=== PATIENT | female | born 1975 | race American Indian/Alaskan Native ===

== ENCOUNTER 2018-08-15 15:43 | Outpatient (CLI) | payer OTHER | END 2018-08-15 15:44 | disposition home or self-care (01) | LOC: LABHHL 15:43 | PROVIDERS: ATTEND Surgery | DX: N60.02 Solitary cyst of left breast (principal) | CPT/HCPCS: 88112 ==

== ENCOUNTER 2019-12-27 09:46 | Outpatient (CLI) | payer OTHER | END 2019-12-27 09:47 | disposition home or self-care (01) | LOC: LABHHL 09:46 | PROVIDERS: ATTEND Surgery | DX: N60.01 Solitary cyst of right breast (principal) | CPT/HCPCS: 88112 ==

== ENCOUNTER 2020-01-16 08:29 | Outpatient (CLI) | payer OTHER ==
--- NOTE | 2020-01-16 09:17 | Ultrasound Report ---
LIMITED LEFT BREAST ULTRASOUND HISTORY: Mammographic asymmetries. COMPARISON: 08/11/2019 and 08/24/2019 mammograms. FINDINGS: Sonographic evaluation focused upon the outer location of the left breast demonstrates young ral benign cysts. The largest is at 3:30 o'clock 5 cm from the nipple and measures 11 mm. No solid ma ss or suspicious shadowing. IMPRESSION: Benign left breast cysts and no suspicious finding. If the clinical examination remains stable, recommend bilateral annual screening mammographic evaluat ion. BIRADS 2: Benign Signer Name: Gage Marin MD Signed: 01/16/2020 9:12 AM Workstation Name: [id number]
== END 2020-01-16 08:30 | disposition home or self-care (01) ==
LOC: SPVWC 08:29
PROVIDERS: ATTEND Surgery
DX: N60.02 Solitary cyst of left breast (principal); R92.8 Other abnormal and inconclusive findings on diagnostic imaging of breast

== ENCOUNTER 2021-03-11 13:02 | Outpatient (CLI) | payer OTHER ==
--- NOTE | 2021-03-11 14:21 | Ultrasound Report ---
ULTRASOUND-GUIDED RIGHT BREAST ASPIRATION WITH CLIP PLACEMENT INDICATION: Outside imaging reports. We do not have the outside imaging. However, the reports describ e a cyst in the right breast at the 11:00 position, 1 cm from the nipple. FINDINGS: Informed consent was obtained. The cyst within the right breast at the 11:00 position, 1 cm from the nipple, measured 2.9 x 1.5 x 2.2 cm. This would correspond with the outside report. Floating debris w ere noted within this mildly complicated cyst. The overlying skin was cleansed with chloro prep and l ocal anesthesia was obtained with a 1% lidocaine solution. Under ultrasound guidance an 18-gauge need le was advanced inside the cyst. A total of 8 mL of dark greenish clear fluid was aspirated and the c yst collapsed completely. A U-shaped biopsy marker was placed to eleonora the site of the biopsy. The asp irate was placed in cytology solution and sent to pathology for assessment. Patient tolerated the procedure well and no immediate complications were identified. A post procedure mammogram was not obtained, however the biopsy marker appears appropriately sonographically. IMPRESSION: Technically successful ultrasound-guided fine-needle aspiration of right breast 11:00 cyst with aspir ate sent for cytological analysis. An addendum will be added to this report once pathology results are available. Signer Name: Brown Patel MD Signed: 03/11/2021 2:16 PM Workstation Name: [id number]
== END 2021-03-11 13:03 | disposition home or self-care (01) ==
LOC: SPVWC 13:02
PROVIDERS: ATTEND Surgery
DX: N60.01 Solitary cyst of right breast (principal); N63.11 Unspecified lump in the right breast, upper outer quadrant; N64.4 Mastodynia; N64.89 Other specified disorders of breast
CPT/HCPCS: 10005; 88112

== ENCOUNTER 2021-05-27 10:07 | Outpatient (CLI) | payer OTHER ==
--- NOTE | 2021-05-27 12:44 | Ultrasound Report ---
Procedure: Ultrasound-guided left breast cyst aspiration, 05/27/2021 Clinical information/indication: The patient has a history of a palpable left breast lump. She presen ts today for ultrasound-guided cyst aspiration. Comparison: Left breast ultrasound, 05/19/2021. Procedure: The benefits, indications and risks were discussed with the patient including but not limi filiberto to bleeding and infection. The agreed to proceed with both verbal and written consent. A timeout procedure was performed using 2 patient identifiers. Sonographic evaluation prior to cyst aspiration demonstrates several scattered cysts in the lateral l eft breast. One cyst at the 3:00 position 6 cm from the nipple appears to correspond to the patient's area of palpable concern. Therefore, this cyst was targeted for aspiration. The breast was prepped and draped in the usual sterile fashion. Lidocaine 1% was used for local anest hesia. Under direct ultrasound guidance, a 25-gauge needle was advanced into the oval cyst at the 3:0 0 position 6 cm from the nipple and was completely aspirated. The cyst completely collapsed. The need le was removed and puncture site covered with a sterile dressing. The cyst yielded 1-2 cc of light ye llow fluid and was discarded. The patient tolerated the procedure without difficulty. No complications were encountered. IMPRESSION: 1. Technically successful ultrasound-guided left breast cyst aspiration. No additional follow-up is n eeded unless otherwise clinically indicated. Findings and recommendations were discussed with the conor seo at the time of her visit. Signer Name: Luciana Yanez MD Signed: 05/27/2021 12:40 PM Workstation Name: [id number]
== END 2021-05-27 10:08 | disposition home or self-care (01) ==
LOC: SPVWC 10:07
PROVIDERS: ATTEND Surgery
DX: N60.02 Solitary cyst of left breast (principal); N63.20 Unspecified lump in the left breast, unspecified quadrant; N64.89 Other specified disorders of breast
CPT/HCPCS: 76942